=== PATIENT | male | born 1990 | race Caucasian/White ===

== ENCOUNTER 2021-07-08 19:34 | Emergency (ER) | payer BC ==
[~2021-07-08] VITALS: Ht 170.2 cm; Wt 83.9 kg
[2021-07-08 19:44] VITALS: BP_SYST 130
[2021-07-08] MEDS ORDERED: BACITRACIN 1 GM OINT TP ONE (20:00)
[2021-07-08] MEDS ORDERED: DIPH-TET-PERTUS Vaccine 0.5 ML VIAL (ADACEL) I.M. ONE (20:00)
[2021-07-08] MEDS ORDERED: LIDOCAINE 1% 10 MG/ML, 20 ML MDV INJ ONE (20:00)
[2021-07-08 20:37] VITALS: BP_SYST 126
== END 2021-07-08 20:39 | disposition home or self-care (01) ==
LOC: SED 19:34
DX: S61.412A Laceration without foreign body of left hand, initial encounter (principal); W26.0XXA Contact with knife, initial encounter; Y93.89 Activity, other specified; Y92.89 Other specified places as the place of occurrence of the external cause; Y99.8 Other external cause status
CPT/HCPCS: 12002; 90471; 90715; 99283; J2001